=== PATIENT | female | born 1965 | race Caucasian/White ===

== ENCOUNTER 2017-05-18 09:21 | Day surgery (SDC) | payer OTHER ==
[2017-05-17 12:33] VITALS: BMI 26.9
[2017-05-18] MEDS ORDERED: PROPOFOL 20 ML ONE ×2 (11:58)
[2017-05-18 12:33] VITALS: TEMP 97.7
[2017-05-18 13:39] VITALS: BP 124/88; PULSE 68
--- NOTE | 2017-05-19 13:19 | PATH ---
Surgical Pathology Report Patient Name: JENNY STAPLES [facility]. Rec. #: [id number] /Age/Gender: 1965 (Age: 51) / F Account: [id number] Location: [facility]-ENDOSCOPY Taken: 05/18/2017 Received: 05/18/2017 Reported: 05/19/2017 Physicians: Ernesto Hope M.D. Specimen(s) Received A: BX DUODENUM B: BX GASTRIC BODY Clinical History GERD, early satiety, persistent heart burn Gastric body erythema Final Diagnosis A. DUODENUM, BIOPSY: DUODENAL MUCOSA WITH MILD CHRONIC INFLAMMATION. NO HISTOLOGIC EVIDENCE OF GLUTEN SENSITIVE ENTEROPATHY (CELIAC DISEASE). B. STOMACH, BODY, ERYTHEMA, BIOPSY: GASTRIC OXYNTIC MUCOSA WITH MILD TO MODERATE CHRONIC GASTRITIS. IMMUNOSTAIN FOR H. PYLORI IS NEGATIVE FOR ORGANISMS. Electronically Signed Markel Fortune M.D. Gross Description A. Received in formalin, labeled "duodenum" are 3 palencia, irregular portions of soft tissue measuring 0.2 cm in greatest dimension. The specimens are submitted in toto in one cassette. B. Received in formalin, labeled "biopsy erythema gastric body" are 2 palencia, irregular portions of soft tissue measuring 0.2-0.3 cm in greatest dimension. The specimens are submitted in toto in one cassette. [facility]/05/18/2017 [facility]/05/18/2017
== END 2017-05-18 13:39 | disposition home or self-care (01) ==
LOC: JASU-ENDO 09:21
PROVIDERS: ATTEND Internal Medicine Gastroenterology
PROC: 0DB68ZX Excision of Stomach, Via Natural or Artificial Opening Endoscopic, Diagnostic (ICD-10-PCS; 2017-05-18)
PROC: 0DB98ZX Excision of Duodenum, Via Natural or Artificial Opening Endoscopic, Diagnostic (ICD-10-PCS; principal; 2017-05-18 10:30)
DX: K29.50 Unspecified chronic gastritis without bleeding (principal); K29.80 Duodenitis without bleeding
CPT/HCPCS: 84703; 88305-TC; 88342-TC

== ENCOUNTER 2021-08-25 04:33 | Day surgery (SDC) | payer OTHER ==
[2021-08-19 17:10] VITALS: BMI 28.1
[2021-08-25] MEDS ORDERED: MIDAZOLAM HCL 2 MG/2 ML SINGLE DOSE VIAL ONE (16:03)
[2021-08-25] MEDS ORDERED: SUCCINYLCHOLINE CHLORIDE 200 MG/10 ML SYRINGE ONE (16:03)
[2021-08-25 18:25] VITALS: BP 120/84; PULSE 77; TEMP 97.9
== END 2021-08-25 18:10 | disposition home or self-care (01) ==
LOC: JASU-SURG 04:33
PROVIDERS: ATTEND Urology
PROC: 0TF4XZZ Fragmentation in Left Kidney Pelvis, External Approach (ICD-10-PCS; principal; 2021-08-25 15:00)
DX: N20.0 Calculus of kidney (principal)